=== PATIENT | male | born 1945 | race Caucasian/White ===

== ENCOUNTER 2017-08-30 12:28 | Emergency (ER) | payer OTHER ==
[~2017-08-30] VITALS: Ht 177.8 cm; Wt 78.0 kg
[2017-08-30 16:30] LABS: PROTHROMBIN TIME 10.9 sec (9.4-11.6)
[2017-08-30 16:33] LABS: CHLORIDE 107 mEq/L (98-107)
[2017-08-30 16:39] LABS: BASOPHILS % 0.6 % (0.0-2.0); EOSINOPHILS % 1.7 % (0.0-5.0); HEMATOCRIT. 41.4 % (42.0-52.0); HEMOGLOBIN. 14.1 g/dL (14.0-18.0); MEAN CORPUSCULAR HEMOGLOBIN 30.8 pg (28.0-32.0); MEAN CORPUSCULAR VOLUME 90.5 fL (80.0-94.0); MEAN PLATELET VOLUME 7.2 fl (7.4-10.4); MONOCYTES % 6.6 % (2.0-8.0); NEUTROPHILS % 63.1 % (40.0-76.0); PLATELET 203 x1000/uL (130-400); RED BLOOD CELL COUNT 4.58 mill/uL (4.7-6.1); RED CELL DISTRIBUTION WIDTH 13.3 % (11.6-14.6)
[2017-08-30 17:36] LABS: KETONES URINE NEGATIVE (NEGATIVE); LEUKOCYTE ESTERASE URINE NEGATIVE (NEGATIVE); NITRITE URINE NEGATIVE (NEGATIVE); OCCULT BLOOD URINE NEGATIVE (NEGATIVE); PH URINE 6.5 (4.5-8.0); PROTEIN URINE NEGATIVE (NEGATIVE); SPECIFIC GRAVITY URINE 1.013 (1.005-1.030); UROBILINOGEN URINE 0.2 E.U./dL (0.2-1.0)
[2017-08-30 17:40] LABS: CLARITY URINE CLEAR (CLEAR); COLOR URINE YELLOW (YELLOW)
[2017-08-30 18:31] VITALS: BP 137/78
== END 2017-08-31 01:40 | disposition left against medical advice (07) ==
LOC: ER 13:35 → EDBEDREQTM 18:27 → EDBEDREQ 18:27 → ER 08-31 01:40
DX: R53.1 Weakness (principal); R42 Dizziness and giddiness; R26.9 Unspecified abnormalities of gait and mobility; J33.9 Nasal polyp, unspecified; H40.9 Unspecified glaucoma
CPT/HCPCS: 36415; 70450; 71045; 80053; 81003; 85025; 85610; 93005; 99285